=== PATIENT | male | born 1935 | race Caucasian/White ===

== ENCOUNTER 2018-12-16 11:57 | Inpatient (IN) ==
[2018-12-16 18:31] LABS: BASOPHILS # (AUTO) 0.1 X10^3/uL (0.0-0.1); BASOPHILS % (AUTO) 1.2 % (0.2-1.0); EOSINOPHILS # (AUTO) 0.2 x10^3/uL (0.0-0.2); HEMATOCRIT 37.1 % (42.0-54.0); HEMOGLOBIN 11.9 g/dL (13.5-18.0); LYMPHOCYTES # (AUTO) 1.5 X10^3/uL (1.3-2.9); LYMPHOCYTES % (AUTO) 15.1 % (21.0-51.0); MEAN CORPUSCULAR HEMOGLOBIN 23.5 pg (27.0-34.0); MEAN CORPUSCULAR HGB CONC 32.1 g/dL (33.0-35.0); MEAN CORPUSCULAR VOLUME 73.2 fL (80.0-100.0); MEAN PLATELET VOLUME 9.9 fL (7.4-11.0); MONOCYTES # (AUTO) 0.8 x10^3/uL (0.3-0.8); NEUTROPHILS # (AUTO) 7.5 x10^3/uL (2.2-4.8); NEUTROPHILS % (AUTO) 73.7 % (42.0-75.0); PLATELET COUNT 200 X10^3/uL (150.0-450.0); RED BLOOD COUNT 5.08 X10^6/uL (4.7-6.0); RED CELL DISTRIBUTION WIDTH 18.4 % (11.6-16.5); WHITE BLOOD COUNT 10.2 X10^3/uL (3.6-10.0)
[2018-12-16 18:45] LABS: ALANINE AMINOTRANSFERASE 19 Units/L (12-78); ALBUMIN 3.7 g/dL (3.4-5.0); ALKALINE PHOSPHATASE 77 Units/L (46-116); ASPARTATE AMINO TRANSFERASE 15 Units/L (15-37); BLOOD UREA NITROGEN 53 mg/dL (7-18); CARBON DIOXIDE 23.8 mmol/L (21-32); CHLORIDE 101 mmol/L (98-107); COR NA(FOR HYPERGLY) 140 mmol/L (136-145); CREATININE 2.78 mg/dL (0.70-1.30); SODIUM 138 mmol/L (136-145); TOTAL PROTEIN 8.6 g/dL (6.4-8.2); eGFR NON BLACK RACES 23 (>60)
[2018-12-16 18:48] LABS: HYPOCHROMASIA 1+; MICROCYTOSIS SLIGHT; PLATELET MORPHOLOGY COMMENT NORMAL (NORMAL)
[2018-12-16 20:26] VITALS: BMI 26.3
--- NOTE | 2018-12-16 21:04 | RAD ---
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 No infiltrate, effusion or pneumothorax identified. Cardiac silhouette is mildly enlarged. The soft tissues are unremarkable. IMPRESSION: 1. Mild cardiomegaly with postsurgical changes as described. Reported By:
[2018-12-16] MEDS: HumuLIN R SUBCUT PRN (23:01)
[2018-12-16] MEDS: LASIX IVP SCH (23:03)
[2018-12-17 04:47] LABS: BASOPHILS # (AUTO) 0.1 X10^3/uL (0.0-0.1); BASOPHILS % (AUTO) 0.9 % (0.2-1.0); EOSINOPHILS # (AUTO) 0.3 x10^3/uL (0.0-0.2); EOSINOPHILS % (AUTO) 3.3 % (0.9-2.9); HEMATOCRIT 34.2 % (42.0-54.0); HEMOGLOBIN 11.1 g/dL (13.5-18.0); LYMPHOCYTES # (AUTO) 1.5 X10^3/uL (1.3-2.9); LYMPHOCYTES % (AUTO) 18.9 % (21.0-51.0); MEAN CORPUSCULAR HEMOGLOBIN 23.8 pg (27.0-34.0); MEAN CORPUSCULAR HGB CONC 32.4 g/dL (33.0-35.0); MEAN CORPUSCULAR VOLUME 73.6 fL (80.0-100.0); MEAN PLATELET VOLUME 10.9 fL (7.4-11.0); MONOCYTES # (AUTO) 0.8 x10^3/uL (0.3-0.8); MONOCYTES % (AUTO) 9.8 % (0.0-13.0); NEUTROPHILS # (AUTO) 5.3 x10^3/uL (2.2-4.8); NEUTROPHILS % (AUTO) 67.1 % (42.0-75.0); PLATELET COUNT 154 X10^3/uL (150.0-450.0); RED BLOOD COUNT 4.64 X10^6/uL (4.7-6.0); RED CELL DISTRIBUTION WIDTH 18.4 % (11.6-16.5); WHITE BLOOD COUNT 7.9 X10^3/uL (3.6-10.0)
[2018-12-17 05:00] LABS: ALBUMIN 3.1 g/dL (3.4-5.0); CALCIUM 8.7 mg/dL (8.5-10.1); CARBON DIOXIDE 24.3 mmol/L (21-32); COR CA(FOR HYPOALB) 9.4 mg/dL (8.5-10.1); CREATININE 2.93 mg/dL (0.70-1.30); TOTAL PROTEIN 7.2 g/dL (6.4-8.2)
[2018-12-17 05:20] LABS: HYPOCHROMASIA 1+; PLATELET MORPHOLOGY COMMENT NORMAL (NORMAL)
--- NOTE | 2018-12-17 06:15 | RAD ---
HISTORY: Shortness of breath Study: Chest AP portable Comparison: 12/16/2018 Findings: Patient is status post median sternotomy. The heart is upper limits normal in size. The aorta is calcified. No congestive heart failure is noted. The carter are normal. The lung caban are clear. Bony thorax is unremarkable. IMPRESSION: Lungs clear Reported By:
[2018-12-17] MEDS: LASIX IVP SCH ×2 (09:24→21:27)
[2018-12-17] MEDS: GLUCOTROL PO SCH (10:52)
[2018-12-17] MEDS: ASPIRIN EC 81 MG PO SCH (10:53)
[2018-12-17] MEDS: COREG TAB 3.125 MG PO SCH ×2 (10:53→21:27)
[2018-12-17] MEDS: SYNTHROID 25 mcg TAB PO SCH (10:53)
[2018-12-17] MEDS ORDERED: PHARMACY CONSULT - DOSE _____ XX SCH (11:00)
[2018-12-17] MEDS: HumuLIN R SUBCUT PRN ×2 (12:57→21:28)
[2018-12-17] MEDS ORDERED: LOVENOX INJ 40 MG SYR SC SCH (13:00)
[2018-12-17] MEDS: LOVENOX INJ 30 MG SYR SC SCH (13:20)
[2018-12-17] MEDS ORDERED: SNACK - Diabetic Appropriate PO SCH ×2 (20:00)
[2018-12-17] MEDS ORDERED: ELAVIL PO SCH (21:00)
[2018-12-18 06:14] LABS: BASOPHILS # (AUTO) 0.1 X10^3/uL (0.0-0.1); BASOPHILS % (AUTO) 0.8 % (0.2-1.0); EOSINOPHILS # (AUTO) 0.2 x10^3/uL (0.0-0.2); EOSINOPHILS % (AUTO) 2.7 % (0.9-2.9); HEMOGLOBIN 12.2 g/dL (13.5-18.0); LYMPHOCYTES # (AUTO) 1.2 X10^3/uL (1.3-2.9); MEAN CORPUSCULAR HEMOGLOBIN 23.7 pg (27.0-34.0); MEAN CORPUSCULAR HGB CONC 32.9 g/dL (33.0-35.0); MEAN CORPUSCULAR VOLUME 72.2 fL (80.0-100.0); MEAN PLATELET VOLUME 10.2 fL (7.4-11.0); MONOCYTES # (AUTO) 0.6 x10^3/uL (0.3-0.8); MONOCYTES % (AUTO) 8.2 % (0.0-13.0); NEUTROPHILS # (AUTO) 5.2 x10^3/uL (2.2-4.8); NEUTROPHILS % (AUTO) 71.3 % (42.0-75.0); PLATELET COUNT 165 X10^3/uL (150.0-450.0); RED BLOOD COUNT 5.13 X10^6/uL (4.7-6.0); RED CELL DISTRIBUTION WIDTH 18.1 % (11.6-16.5); WHITE BLOOD COUNT 7.3 X10^3/uL (3.6-10.0)
--- NOTE | 2018-12-18 06:23 | RAD ---
HISTORY: Shortness of breath Study: Chest AP portable Comparison: 12/17/2018 Findings: Patient is status post median sternotomy. The heart is upper limits normal in size. The aorta is calcified. No congestive heart failure is noted. No infiltrates are identified. The bony thorax is unremarkable. IMPRESSION: Lungs clear Reported By:
[2018-12-18] MEDS: HumuLIN R SUBCUT PRN ×2 (06:27→12:00)
[2018-12-18 06:35] LABS: ALBUMIN 3.2 g/dL (3.4-5.0); CALCIUM 8.9 mg/dL (8.5-10.1); CARBON DIOXIDE 23.6 mmol/L (21-32); COR CA(FOR HYPOALB) 9.5 mg/dL (8.5-10.1); CREATININE 2.39 mg/dL (0.70-1.30); TOTAL PROTEIN 7.7 g/dL (6.4-8.2)
[2018-12-18 06:58] LABS: HYPOCHROMASIA SLIGHT; PLATELET MORPHOLOGY COMMENT NORMAL (NORMAL)
[2018-12-18] MEDS: GLUCOTROL PO SCH (08:43)
[2018-12-18] MEDS: ASPIRIN EC 81 MG PO SCH (08:43)
[2018-12-18] MEDS: COREG TAB 3.125 MG PO SCH (08:43)
[2018-12-18] MEDS: SYNTHROID 25 mcg TAB PO SCH (08:43)
[2018-12-18] MEDS: LASIX IVP SCH ×2 (08:45→10:11)
[2018-12-18] MEDS: LOVENOX INJ 30 MG SYR SC SCH (08:45)
[2018-12-18 09:10] VITALS: BP 131/60
[2018-12-18] MEDS ORDERED: LASIX PO ONE (11:42)
[2018-12-18] MEDS ORDERED: LASIX ONE (11:48)
[2018-12-19] MEDS ORDERED: LASIX PO ONE (11:42)
== END 2018-12-18 12:15 | disposition home or self-care (01) | DRG 191 ==
LOC: EDBD 11:58 → OBS 11:58 → ICU 17:53
PROVIDERS: ADMIT Internal Medicine; ATTEND Internal Medicine
DX: I11.0 Hypertensive heart disease with heart failure; R06.02 Shortness of breath; M13.0 Polyarthritis, unspecified; J44.1 Chronic obstructive pulmonary disease with (acute) exacerbation; I50.9 Heart failure, unspecified; N18.4 Chronic kidney disease, stage 4 (severe); E11.65 Type 2 diabetes mellitus with hyperglycemia
CPT/HCPCS: 36415; 71010; 71045; 80053; 83880; 85025; 93306; 97161; A4216; A4222; J1650; J1815; J1940

== ENCOUNTER 2020-05-15 14:08 | Inpatient (IN) ==
[2020-05-15] MEDS ORDERED: REMDESIVIR 200 MG in NS 250 ML IV 250 ML IV SCH (15:56)
[2020-05-15] MEDS ORDERED: DUONEB 0.5 MG/3 MG (3 mL) NEB SCH (15:56)
[2020-05-15] MEDS ORDERED: TUSSIONEX PENNKINETIC SUSP PO PRN (15:56)
[2020-05-15] MEDS ORDERED: NS 1/2 1000 ML IV 1,000 ML IV ONE (16:08)
[2020-05-15] MEDS ORDERED: DUONEB 0.5 MG/3 MG (3 mL) NEB ONE (16:22)
[2020-05-15] MEDS: DUONEB 0.5 MG/3 MG (3 mL) NEB SCH ×2 (16:30→20:16)
[2020-05-15] MEDS: PULMICORT NEB TX 0.5 MG NEB SCH ×2 (16:30→20:16)
[2020-05-15 16:31] VITALS: BMI 25.7
[2020-05-15] MEDS: NS 1/2 1000 ML IV 1,000 ML IV SCH (16:47)
[2020-05-15] MEDS: VSL#3 PO SCH (16:47)
[2020-05-15] MEDS: ROBITUSSIN DM PO SCH ×3 (16:47→22:00)
--- NOTE | 2020-05-15 16:55 | RAD ---
HISTORYPNEUMONIASTUDYCHEST, 1 [id number]/19/2020FINDINGSThe trachea is midline. The cardiac silhouette is stable. Similar post sternotomy changes. Patchy bilateral airspace opacities. The bony thorax is unremarkable.IMPRESSIONPatchy bilateral airspace opacities consistent with history of COVID-19. Recommend follow-up to resolution.Electronically signed by: TOMAS CLANCY (May 15, 2020 16:53:50)
[2020-05-15] MEDS: PEPCID 20 MG IV PREMIX* 20 MG/50 ML BAG IV SCH ×2 (17:01→22:00)
[2020-05-15] MEDS: LEVAQUIN PREMIX IV 500 MG 500 MG/100 ML BAG IV SCH (17:01)
[2020-05-15] MEDS: PROTONIX INJ 40 MG VIAL IVP SCH ×2 (17:01→22:00)
[2020-05-15 18:16] LABS: BASOPHILS % (AUTO) 0.3 % (0.2-1.0); EOSINOPHILS % (AUTO) 0.1 % (0.9-2.9); HEMATOCRIT 37.5 % (42.0-54.0); HEMOGLOBIN 11.8 g/dL (13.5-18.0); LYMPHOCYTES # (AUTO) 0.7 X10^3/uL (1.3-2.9); LYMPHOCYTES % (AUTO) 12.4 % (21.0-51.0); MEAN CORPUSCULAR HEMOGLOBIN 23.8 pg (27.0-34.0); MEAN CORPUSCULAR HGB CONC 31.4 g/dL (33.0-35.0); MEAN CORPUSCULAR VOLUME 75.7 fL (80.0-100.0); MEAN PLATELET VOLUME 11.1 fL (7.4-11.0); MONOCYTES # (AUTO) 0.6 x10^3/uL (0.3-0.8); MONOCYTES % (AUTO) 10.3 % (0.0-13.0); NEUTROPHILS # (AUTO) 4.4 x10^3/uL (2.2-4.8); NEUTROPHILS % (AUTO) 76.9 % (42.0-75.0); PLATELET COUNT 119 X10^3/uL (150.0-450.0); RED BLOOD COUNT 4.95 X10^6/uL (4.7-6.0); RED CELL DISTRIBUTION WIDTH 17.8 % (11.6-16.5); WHITE BLOOD COUNT 5.7 X10^3/uL (3.6-10.0)
[2020-05-15 18:35] LABS: HYPOCHROMASIA 1+; PLATELET MORPHOLOGY COMMENT NORMAL (NORMAL)
[2020-05-15 18:53] LABS: ALBUMIN 2.8 g/dL (3.4-5.0); CALCIUM 9.2 mg/dL (8.5-10.1); COR CA(FOR HYPOALB) 10.2 mg/dL (8.5-10.1); CREATININE 2.96 mg/dL (0.70-1.30); TOTAL PROTEIN 7.6 g/dL (6.4-8.2); TROPONIN I 0.05 ng/mL (0-1.5)
[2020-05-15 18:58] LABS: CARBON DIOXIDE 20.5 mmol/L (21-32)
[2020-05-15 20:07] LABS: ABG BASE EXCESS -6.2 mmol/L (-2.0-2.0); ABG HCO3 17.1 mmol/L (22-26)
[2020-05-15 20:08] LABS: ABG ALLEN TEST POS
[2020-05-15] MEDS: LOVENOX INJ 30 MG SYR SC SCH (21:30)
[2020-05-15] MEDS: SOLU-Medrol 40 MG VIAL IVP SCH (22:00)
[2020-05-16 05:36] LABS: BASOPHILS % (AUTO) 0.1 % (0.2-1.0); EOSINOPHILS % (AUTO) 0.1 % (0.9-2.9); HEMATOCRIT 35.3 % (42.0-54.0); LYMPHOCYTES # (AUTO) 0.4 X10^3/uL (1.3-2.9); LYMPHOCYTES % (AUTO) 9.3 % (21.0-51.0); MEAN CORPUSCULAR HEMOGLOBIN 23.7 pg (27.0-34.0); MEAN CORPUSCULAR HGB CONC 31.2 g/dL (33.0-35.0); MEAN CORPUSCULAR VOLUME 75.9 fL (80.0-100.0); MEAN PLATELET VOLUME 10.6 fL (7.4-11.0); MONOCYTES # (AUTO) 0.2 x10^3/uL (0.3-0.8); MONOCYTES % (AUTO) 4.7 % (0.0-13.0); NEUTROPHILS # (AUTO) 3.7 x10^3/uL (2.2-4.8); NEUTROPHILS % (AUTO) 85.8 % (42.0-75.0); PLATELET COUNT 100 X10^3/uL (150.0-450.0); RED BLOOD COUNT 4.65 X10^6/uL (4.7-6.0); RED CELL DISTRIBUTION WIDTH 17.6 % (11.6-16.5); WHITE BLOOD COUNT 4.4 X10^3/uL (3.6-10.0)
[2020-05-16 05:41] LABS: ABG BASE EXCESS -9.9 mmol/L (-2.0-2.0); ABG HCO3 14.9 mmol/L (22-26)
[2020-05-16 05:42] LABS: ABG ALLEN TEST POS
[2020-05-16] MEDS: NS 1/2 1000 ML IV 1,000 ML IV SCH ×2 (05:53→09:01)
[2020-05-16] MEDS: SOLU-Medrol 40 MG VIAL IVP SCH ×3 (05:53→21:48)
[2020-05-16 06:01] LABS: ALBUMIN 2.3 g/dL (3.4-5.0); CALCIUM 8.6 mg/dL (8.5-10.1); CREATININE 2.81 mg/dL (0.70-1.30); TOTAL PROTEIN 6.8 g/dL (6.4-8.2)
[2020-05-16 06:06] LABS: CARBON DIOXIDE 17.8 mmol/L (21-32)
[2020-05-16] MEDS ORDERED: HumuLIN R ONE (06:19)
[2020-05-16] MEDS: HumuLIN R SC PRN ×4 (06:23→21:39)
[2020-05-16 06:44] LABS: ANISOCYTOSIS SLIGHT; HYPOCHROMASIA SLIGHT; PLATELET MORPHOLOGY COMMENT NORMAL (NORMAL)
--- NOTE | 2020-05-16 08:01 | RAD ---
[id number], SOBSTUDYCHEST, 1 [id number]/14/2020FINDINGSThe trachea is near to the midline. Patient is status post sternotomy. There is a stent in the aortic root. There is no evidence of effusions or pneumothorax. There is stable mild cardiomegaly. There is uncoiling of the aorta are arch with calcifications. Since prior study there has been interval worsening of disease with more coalescent infiltrates in the left midlung zone as well as in the right upper lobe and in the right lower lobe.IMPRESSIONWorsening disease with new denser infiltrates in the left midlung zone right upper lobe and right lower lobe. No effusions or pneumothoraxElectronically signed by: Manuela Camarillo (May 16, 2020 07:59:27)
[2020-05-16] MEDS ORDERED: ATIVAN TAB 1 MG PO PRN (08:30)
[2020-05-16] MEDS: PULMICORT NEB TX 0.5 MG NEB SCH ×2 (08:50→20:20)
[2020-05-16] MEDS: DUONEB 0.5 MG/3 MG (3 mL) NEB SCH ×4 (08:50→20:20)
[2020-05-16] MEDS ORDERED: NS 1/2 1000 ML IV 1,000 ML IV ONE (08:56)
[2020-05-16 09:00] LABS: HEMOGLOBIN A1C 8.3 %
[2020-05-16] MEDS ORDERED: LASIX IVP SCH (09:00)
[2020-05-16] MEDS ORDERED: RED YEAST RICE 600 MG PO SCH (09:00)
[2020-05-16] MEDS: PEPCID 20 MG IV PREMIX* 20 MG/50 ML BAG IV SCH (09:02)
[2020-05-16] MEDS: VSL#3 PO SCH (09:02)
[2020-05-16] MEDS: LEVAQUIN PREMIX IV 500 MG 500 MG/100 ML BAG IV SCH (09:02)
[2020-05-16] MEDS: ROBITUSSIN DM PO SCH ×4 (09:02→21:48)
[2020-05-16 09:05] LABS: SERUM ACETONE NEGATIVE (NEGATIVE)
[2020-05-16] MEDS: REMDESIVIR 100 MG in NS 250 ML IV 250 ML IV SCH (09:18)
[2020-05-16] MEDS: LOVENOX INJ 30 MG SYR SC SCH ×2 (09:19→21:45)
--- NOTE | 2020-05-16 10:14 | DR.UPDATE ---
H&P Update History and Physical Update: History and Physical reviewed and patient examined. Changes noted: Yes with the following: IS A 84 YEAR OLD PATIENT OF OURS. HE PRESENTED TO THE OFFICE YESTERDAY WITH COMPLAINTS OF FEVER, CHILLS, COUGH, SHORTNESS OF BREATH, WEAKNESS, AND ACHING ALL OVER. SYMPTOMS REPORTEDLY STARTED ON 05/12/20. AUSCULTATION OF LUNG SERRATO REVEALED SCATTERED WHEEZING TO BILATERAL LUNGS. HE WAS TESTED FOR COVID-19. HE WAS POSITIVE. WHILE IN THE OFFICE, HIS OXYGEN SATURATIONS WERE NOTED TO BE 90% ON ROOM AIR. HE WAS ADMITTED TO THE HOSPITAL FOR FURTHER EVALUATION AND TREATMENT OF PNEUMONIA DUE TO COVID-19 AND HYPOXIA. ON ARRIVAL TO THE HOSPITAL, VITALS WERE 100.2-96-18-98%NC-161/71. LABS WERE OBTAINED. ABNORMAL LAB VALUES INCLUDE THE FOLLOWING: HGB 11.8, HCT 37.5, PLT COUNT 119, D-DIMER 2.15, CARBON DIOXIDE 20.5, BUN 53, CREATININE 2.96, GLUCOSE 170, AST 46, BNP 795, CRP 151.80, ALBUMIN 2.8, GLOBULIN 4.8. AN ABG WAS OBTAINED AND REVEALED: PH 7.410, PC02 27.0, P02 73, HC03 17.1, 02 SAT 95, BASE EXCESS -6.2, FI02 28.0. BLOOD CULTURES WERE SET UP. A CHEST XRAY WAS OBTAINED AND REVEALED: Patchy bilateral airspace opacities consistent with history of COVID-19. Recommend follow-up to resolution. AN EKG WAS OBTAINED AND REVEALED: SINUS RHYTHM WITH HR 99. 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 HE WAS STARTED ON 1/2NS AT 75 ML/HR, REMDESIVIR 200MG IV X 1 DOSE, THEN 100MG IV DAILY, LEVAQUIN 500MG IV DAILY, LASIX 40MG IV BID, PEPCID 20MG IV DAILY, PROTONIX 40MG IV BID, DUONEBS QID, PULMICORT NEBS BID, TUSSIONEX 5ML PO Q12H PRN, ROBITUSSIN DM 10 ML PO QID, HUMULIN R SLIDING SCALE, SOLU-MEDROL 80MG IV Q8H, LOVENOX 30MG SC BID, AND HER HOME MEDICATIONS WERE RESUMED. OTHERWISE, WE PLAN TO FOLLOW UP WITH AM LABS, CHEST XRAY, ABG, AND CONTINUE TO MONITOR. TIME SPENT ON CLINICAL ASSESSMENT, REVIEWING LABS AND IMAGING, DECISION MAKING, AND DOCUMENTATION GREATER THAN 74 MINUTES. Prescription drug monitoring program results: PDMP reviewed and no concerns identified H&P Reviewed: Yes Patient was examined?: Yes
[2020-05-16] MEDS: VITAMIN D3 25 mcg (1,000 UNITS) PO SCH ×2 (10:49→12:02)
[2020-05-16] MEDS: ASPIRIN EC 81 MG PO SCH (10:49)
[2020-05-16] MEDS: VITAMIN C PO SCH (10:49)
[2020-05-16] MEDS: COREG TAB 12.5 MG PO SCH ×2 (10:50→21:40)
[2020-05-16] MEDS: COLACE CAP 100 MG PO SCH (10:50)
[2020-05-16] MEDS: NEPHRO-VITE RX PO SCH (10:50)
[2020-05-16] MEDS: SYNTHROID 25 mcg TAB PO SCH (10:51)
[2020-05-16] MEDS: PROTONIX INJ 40 MG VIAL IVP SCH ×2 (10:56→21:47)
[2020-05-16] MEDS: FOLIC ACID TAB 1 MG PO SCH (10:56)
[2020-05-16] MEDS: NS 1/2 1000 ML IV 1,000 ML with SODIUM BICARBONATE 8.4% INJ ADULT 50 ML IV SCH ×2 (11:22)
[2020-05-16] MEDS: CRESTOR TAB 10 MG PO SCH (21:45)
[2020-05-16] MEDS: ELAVIL PO SCH (21:45)
[2020-05-16] MEDS: ATIVAN TAB 0.5 MG PO PRN (21:48)
[2020-05-17] MEDS: NS 1/2 1000 ML IV 1,000 ML with SODIUM BICARBONATE 8.4% INJ ADULT 50 ML IV SCH ×4 (00:04→16:38)
[2020-05-17 04:34] LABS: ABG ALLEN TEST POS; ABG BASE EXCESS -7.8 mmol/L (-2.0-2.0); ABG HCO3 16.6 mmol/L (22-26)
[2020-05-17 06:09] LABS: BASOPHILS % (AUTO) 0.1 % (0.2-1.0); HEMATOCRIT 35.9 % (42.0-54.0); HEMOGLOBIN 11.5 g/dL (13.5-18.0); LYMPHOCYTES # (AUTO) 0.8 X10^3/uL (1.3-2.9); LYMPHOCYTES % (AUTO) 6.7 % (21.0-51.0); MEAN CORPUSCULAR HEMOGLOBIN 23.6 pg (27.0-34.0); MEAN CORPUSCULAR VOLUME 73.9 fL (80.0-100.0); MEAN PLATELET VOLUME 11.6 fL (7.4-11.0); MONOCYTES # (AUTO) 0.7 x10^3/uL (0.3-0.8); MONOCYTES % (AUTO) 5.7 % (0.0-13.0); NEUTROPHILS # (AUTO) 10.7 x10^3/uL (2.2-4.8); NEUTROPHILS % (AUTO) 87.5 % (42.0-75.0); PLATELET COUNT 134 X10^3/uL (150.0-450.0); RED BLOOD COUNT 4.85 X10^6/uL (4.7-6.0); RED CELL DISTRIBUTION WIDTH 17.6 % (11.6-16.5); WHITE BLOOD COUNT 12.2 X10^3/uL (3.6-10.0)
[2020-05-17] MEDS: SOLU-Medrol 40 MG VIAL IVP SCH ×3 (06:28→22:38)
[2020-05-17 06:38] LABS: ALBUMIN 2.2 g/dL (3.4-5.0); CALCIUM 8.5 mg/dL (8.5-10.1); COR CA(FOR HYPOALB) 9.9 mg/dL (8.5-10.1); CREATININE 3.25 mg/dL (0.70-1.30); TOTAL PROTEIN 6.5 g/dL (6.4-8.2)
[2020-05-17 06:43] LABS: CARBON DIOXIDE 17.5 mmol/L (21-32)
--- NOTE | 2020-05-17 06:44 | RAD ---
HISTORYSOB, COVID+STUDYCHEST, 1 [id number]/15/2020TECHNIQUEAP view of the chestFINDINGSPost median sternotomy and cardiac valve replacement. Cardiac and mediastinal contour similar to prior. Stable bilateral airspace disease. No pleural effusion or pneumothorax.IMPRESSIONNo significant change.Electronically signed by: Nate Osorio (May 17, 2020 06:43:09)
[2020-05-17 06:54] LABS: HYPOCHROMASIA SLIGHT; PLATELET MORPHOLOGY COMMENT NORMAL (NORMAL)
[2020-05-17] MEDS: DUONEB 0.5 MG/3 MG (3 mL) NEB SCH ×4 (09:20→21:40)
[2020-05-17] MEDS: PULMICORT NEB TX 0.5 MG NEB SCH ×2 (09:20→21:40)
[2020-05-17] MEDS: LEVAQUIN PREMIX IV 500 MG 500 MG/100 ML BAG IV SCH (10:29)
[2020-05-17] MEDS: VITAMIN D3 25 mcg (1,000 UNITS) PO SCH (10:29)
[2020-05-17] MEDS: NEPHRO-VITE RX PO SCH (10:29)
[2020-05-17] MEDS: PROTONIX INJ 40 MG VIAL IVP SCH ×2 (10:30→22:38)
[2020-05-17] MEDS: LOVENOX INJ 30 MG SYR SC SCH ×2 (10:30→22:37)
[2020-05-17] MEDS: ROBITUSSIN DM PO SCH ×4 (10:31→22:38)
[2020-05-17] MEDS: VSL#3 PO SCH (10:31)
[2020-05-17] MEDS: COLACE CAP 100 MG PO SCH (10:31)
[2020-05-17] MEDS: SYNTHROID 25 mcg TAB PO SCH (10:31)
[2020-05-17] MEDS: COREG TAB 12.5 MG PO SCH ×2 (10:31→22:36)
[2020-05-17] MEDS: FOLIC ACID TAB 1 MG PO SCH (10:32)
[2020-05-17] MEDS: VITAMIN C PO SCH (10:32)
[2020-05-17] MEDS: ASPIRIN EC 81 MG PO SCH (10:32)
[2020-05-17] MEDS: PEPCID 20 MG IV PREMIX* 20 MG/50 ML BAG IV SCH (10:32)
[2020-05-17] MEDS: HumuLIN R SC PRN ×3 (11:40→22:39)
[2020-05-17] MEDS: REMDESIVIR 100 MG in NS 250 ML IV 250 ML IV SCH (13:58)
[2020-05-17] MEDS ORDERED: MORPHINE SULFATE INJ 2 MG INJ ONE (16:30)
[2020-05-17] MEDS: MORPHINE SULFATE INJ 2 MG INJ IVP PRN (16:48)
[2020-05-17 17:38] LABS: ABG BASE EXCESS -9.6 mmol/L (-2.0-2.0)
[2020-05-17 17:39] LABS: ABG ALLEN TEST POS; ABG HCO3 15.7 mmol/L (22-26)
[2020-05-17] MEDS: CRESTOR TAB 10 MG PO SCH (22:36)
[2020-05-17] MEDS: ELAVIL PO SCH (22:37)
[2020-05-18] MEDS: NS 1/2 1000 ML IV 1,000 ML with SODIUM BICARBONATE 8.4% INJ ADULT 50 ML IV SCH ×8 (03:00→21:25)
[2020-05-18 05:27] LABS: BASOPHILS % (AUTO) 0 % (0.2-1.0); HEMATOCRIT 35.9 % (42.0-54.0); HEMOGLOBIN 11.4 g/dL (13.5-18.0); LYMPHOCYTES # (AUTO) 0.4 X10^3/uL (1.3-2.9); LYMPHOCYTES % (AUTO) 2.4 % (21.0-51.0); MEAN CORPUSCULAR HEMOGLOBIN 23.7 pg (27.0-34.0); MEAN CORPUSCULAR HGB CONC 31.8 g/dL (33.0-35.0); MEAN CORPUSCULAR VOLUME 74.6 fL (80.0-100.0); MEAN PLATELET VOLUME 11.3 fL (7.4-11.0); MONOCYTES # (AUTO) 0.8 x10^3/uL (0.3-0.8); MONOCYTES % (AUTO) 4.9 % (0.0-13.0); NEUTROPHILS # (AUTO) 16.2 x10^3/uL (2.2-4.8); NEUTROPHILS % (AUTO) 92.7 % (42.0-75.0); PLATELET COUNT 155 X10^3/uL (150.0-450.0); RED BLOOD COUNT 4.82 X10^6/uL (4.7-6.0); RED CELL DISTRIBUTION WIDTH 17.6 % (11.6-16.5); WHITE BLOOD COUNT 17.4 X10^3/uL (3.6-10.0)
[2020-05-18 05:33] LABS: ABG ALLEN TEST POS; ABG HCO3 18.8 mmol/L (22-26); FRACTIONATED INSPIRED OXYGEN 100
[2020-05-18 05:37] LABS: ALBUMIN 2.2 g/dL (3.4-5.0); CALCIUM 8.6 mg/dL (8.5-10.1); CARBON DIOXIDE 20.9 mmol/L (21-32); CREATININE 3.78 mg/dL (0.70-1.30); TOTAL PROTEIN 6.6 g/dL (6.4-8.2)
[2020-05-18] MEDS: SOLU-Medrol 40 MG VIAL IVP SCH ×3 (05:57→21:25)
[2020-05-18 06:24] LABS: HYPOCHROMASIA 1+; PLATELET MORPHOLOGY COMMENT NORMAL (NORMAL)
--- NOTE | 2020-05-18 08:06 | RAD ---
HISTORYCOVID, SOBSTUDYCHEST, 1 VIEWCOMPARISONPortable chest May 17, 2020.FINDINGSThe trachea is midline. The cardiac silhouette is unremarkable there are sternotomy wires from prior surgery. And aortic stent is in place.. The diffuse interstitial infiltrates are present bilaterally but show mild improvement in the density of the infiltrate in the left midlung field. There is no pneumothorax or effusion.. The bony thorax is unremarkable.IMPRESSIONBilateral interstitial infiltrates with mild improvement in the left midlung field compared to yesterdays study.Postsurgical changes sternotomy and aortic stent in place..Electronically signed by: BYRON MARIN (May 18, 2020 08:04:56)
[2020-05-18] MEDS: DUONEB 0.5 MG/3 MG (3 mL) NEB SCH ×4 (09:10→20:42)
[2020-05-18] MEDS: PULMICORT NEB TX 0.5 MG NEB SCH ×2 (09:10→20:42)
[2020-05-18] MEDS: NEPHRO-VITE RX PO SCH (09:26)
[2020-05-18] MEDS: PEPCID 20 MG IV PREMIX* 20 MG/50 ML BAG IV SCH (09:32)
[2020-05-18] MEDS: LOVENOX INJ 30 MG SYR SC SCH ×2 (09:33→21:25)
[2020-05-18] MEDS: PROTONIX INJ 40 MG VIAL IVP SCH ×2 (09:35→21:25)
[2020-05-18] MEDS: COREG TAB 12.5 MG PO SCH ×2 (09:48→21:25)
[2020-05-18] MEDS: SYNTHROID 25 mcg TAB PO SCH (09:49)
[2020-05-18] MEDS: ASPIRIN EC 81 MG PO SCH (09:49)
[2020-05-18] MEDS: ROBITUSSIN DM PO SCH ×4 (09:49→21:25)
[2020-05-18] MEDS: VITAMIN D3 25 mcg (1,000 UNITS) PO SCH (09:52)
[2020-05-18] MEDS: VITAMIN C PO SCH (09:53)
[2020-05-18] MEDS: FOLIC ACID TAB 1 MG PO SCH (09:53)
[2020-05-18] MEDS: VSL#3 PO SCH (09:54)
[2020-05-18] MEDS: COLACE CAP 100 MG PO SCH (09:54)
[2020-05-18] MEDS ORDERED: PHARMACY CONSULT - VANCOMYCIN XX SCH (10:00)
[2020-05-18] MEDS: LEVAQUIN PREMIX IV 500 MG 500 MG/100 ML BAG IV SCH (10:17)
[2020-05-18] MEDS: HumuLIN R SC PRN ×3 (10:49→21:25)
[2020-05-18] MEDS: REMDESIVIR 100 MG in NS 250 ML IV 250 ML IV SCH (11:42)
[2020-05-18] MEDS: VANCOMYCIN IV *PREMIX 1 G/200 ML BAG 1 G/200 ML PIGGYBACK IV NR (13:08)
[2020-05-18] MEDS ORDERED: LASIX IVP ONE (16:35)
--- NOTE | 2020-05-18 20:49 | PCM.PROG ---
Progress Note - Progress Note for Day of Date of Exam: 05/17/20 - Subjective Subjective: WAS ADMITTED FOR TREATMENT OF PNEUMONIA DUE TO COVID-19 AND HYPOXIA. TODAY, HE IS ALERT AND ORIENTED, LYING IN BED ON MORNING ROUNDS.HE CONTINUES WITH COMPLAINTS OF WEAKNESS, COUGH, SHORTNESS OF BREATH, AND BODY ACHES TODAY. HE IS CURRENTLY UTILZING HEATED HIGH FLOW OXYGEN AT 50%, FI02 94. HIS OXYGEN SATURATIONS HAVE BEEN 88-95% ON [facility] OXYGEN. WHEN AMBULATING, HIS SATURATIONS DROP TO THE 70s. HE DENIES IMPROVEMENT IN SYMPTOMS SINCE YESTERDAY. ON EXAMINATION, HEART IS REGULAR IN RATE AND RHYTHM. BILATERAL LUNGS ARE NOTED WITH SCATTERED WHEEZING THROUGHOUT. ABDOMEN IS ROUND, SOFT, AND NON-TENDER WITH NORMAL BOWEL SOUNDS NOTED IN ALL QUADRANTS. HIS VITALS THIS MORNING ARE: 98.4-8 9-44-90%HHF-159/70. LABS WERE OBTAINED. ABNORMAL LAB VALUES INCLUDE THE FOLLOWING: WBC 12.2, HGB 11.5, HCT 35.9, PLT COUNT 134, CARBON DIOXIDE 17.5, VUN 71, CREATININE 3.25, GLUCOSE 193, FERRITIN 2937, AST 52, CRP 102.90, ALBUMIN 2.2. AN ABG WAS OBTAINED THIS MORNING AND REVEALED: PH 7.300, PC02 32, P02 72, HC03 15.7, 02 SAT 92, FI02 100.0. SPUTUM AND BLOOD CULTURES ARE PENDING. A CHEST XRAY WAS OBTAINED AND REVEALED: Post median sternotomy and cardiac valve replacement. Cardiac and mediastinal contour similar to prior. Stable bilateral airspace disease. No pleural effusion or pneumothorax. HE IS CURRNENTLY RECEIVING 1/2NS AT 75 ML/HR, REMDESIVIR 200MG IV X 1 DOSE, THEN 100MG IV DAILY, LEVAQUIN 500MG IV DAILY, LASIX 40MG IV BID, PEPCID 20MG IV DAILY, PROTONIX 40MG IV BID, DUONEBS QID, PULMICORT NEBS BID, TUSSIONEX 5ML PO Q12H PRN, ROBITUSSIN DM 10 ML PO QID, HUMULIN R SLIDING SCALE, SOLU-MEDROL 80MG IV Q8H, LOVENOX 30MG SC BID, AND HER HOME MEDICATIONS WERE RESUMED. TIME SPENT ON CLINICAL ASSESSMENT, REVIEWING LABS AND IMAGING, DECISION MAKING, AND DOCUMENTATION GREATER THAN 45 MINUTES. - Past Medical Family Social History Past Med/Fam/Surg Hx: No changes since H&P Allergies: Allergies naproxen [From Aleve] Allergy (Verified 05/13/20 12:48) - Review of Systems ROS: No change since H&P - Vital Signs and I&O's Vital Signs: Temperature 97.7 F Pulse Rate [Apical] 93 Pulse Rate 77 Respiratory Rate 25 Blood Pressure [Left Arm] 151/65 Blood Pressure [Right Arm] 129/60 Blood Pressure 124/60 O2 Sat by Pulse Oximetry 93 Intake and Output: Intake & Output 05/16/20 05/17/20 05/18/20 05/19/20 11:59 11:59 11:59 11:59 Intake Total 1825 / 1825 2756 / 2756 2741 / 2741 1520 / 1520 Output Total 600 / 600 2125 / 2125 1500 / 1500 350 / 350 Balance 1225 / 1225 631 / 631 1241 / 1241 1170 / 1170 - Physical Exam Oriented: Normal Eyes: Normal Ear: Normal Nose: Normal Throat: Normal Respiratory: Generalized, Wheezes Cardiovascular: Normal : Normal Auscultation: Bowel Sounds: Normal Palpation: Normal Tenderness: Normal Skin: Normal Musculoskeletal: Normal Psychiatric: Normal Mood Description: Calm Affect: Normal Speech Pattern: Clear, Appropriate - Laboratory and Diagnostics Result Diagrams: 05/18/20 04:45 05/18/20 04:45 Labs: 05/15/20 17:30 Blood Blood Culture - Preliminary 05/15/20 17:45 Blood Blood Culture - Preliminary 05/16/20 13:38 Sputum - Expectorated Sputum Sputum Culture - Final 05/16/20 13:38 Sputum - Expectorated Sputum - Final Laboratory WBC 17.4 X10^3/uL (3.6-10.0) H 05/18/20 04:45 RBC 4.82 X10^6/uL (4.7-6.0) 05/18/20 04:45 Hgb 11.4 g/dL (13.5-18.0) L 05/18/20 04:45 Hct 35.9 % (42.0-54.0) L 05/18/20 04:45 MCV 74.6 fL (80.0-100.0) L 05/18/20 04:45 MCH 23.7 pg (27.0-34.0) L 05/18/20 04:45 MCHC 31.8 g/dL (33.0-35.0) L 05/18/20 04:45 RDW 17.6 % (11.6-16.5) H 05/18/20 04:45 Plt Count 155 X10^3/uL (150.0-450.0) 05/18/20 04:45 Plt Count Comment Adequate (ADEQUATE) 05/18/20 04:45 MPV 11.3 fL (7.4-11.0) H 05/18/20 04:45 Neut % (Auto) 92.7 % (42.0-75.0) H 05/18/20 04:45 Lymph % (Auto) 2.4 % (21.0-51.0) L 05/18/20 04:45 [place] % (Auto) 4.9 % (0.0-13.0) 05/18/20 04:45 Eos % (Auto) 0.0 % (0.9-2.9) L 05/18/20 04:45 Baso % (Auto) 0 % (0.2-1.0) L 05/18/20 04:45 Neut # (Auto) 16.2 x10^3/uL (2.2-4.8) H 05/18/20 04:45 Lymph # (Auto) 0.4 X10^3/uL (1.3-2.9) L 05/18/20 04:45 [place] # (Auto) 0.8 x10^3/uL (0.3-0.8) 05/18/20 04:45 Eos # (Auto) 0.0 x10^3/uL (0.0-0.2) 05/18/20 04:45 Baso # (Auto) 0.0 X10^3/uL (0.0-0.1) 05/18/20 04:45 Absolute Nucleated RBC 0.1 /100WBC 05/18/20 04:45 Total Counted 100 05/18/20 04:45 Neutrophils % (Manual) 92 % (39-76) H 05/18/20 04:45 Lymphocytes % (Manual) 6 % (13-43) L 05/18/20 04:45 Monocytes % (Manual) 2 % (4-9) L 05/18/20 04:45 Plt Morphology Comment Normal (NORMAL) 05/18/20 04:45 RBC Morphology Abnormal (NORMAL) 05/18/20 04:45 Hypochromasia 1+ A 05/18/20 04:45 Anisocytosis Slight A 05/16/20 04:50 D-Dimer 2.15 ug/ml (0.0-0.57) H* 05/15/20 17:30 Sample Site Rr 05/18/20 05:00 ABG pH 7.350 (7.35-7.45) 05/18/20 05:00 ABG pCO2 34.0 mmHg (35.0-45.0) L 05/18/20 05:00 ABG pO2 65.0 mmHg (80.0-100.0) L 05/18/20 05:00 ABG HCO3 18.8 mmol/L (22-26) L 05/18/20 05:00 ABG O2 Saturation 91.0 % (90-100) 05/18/20 05:00 ABG Base Excess -6.0 mmol/L (-2.0-2.0) L 05/18/20 05:00 Breezy Test Pos 05/18/20 05:00 A-a Gradient 606.0 mmHg 05/18/20 05:00 FiO2 100 05/18/20 05:00 Blood Gas Comments Andre well 05/18/20 05:00 Sodium 139 mmol/L (136-145) 05/18/20 04:45 Corrected Sodium 142 mmol/L (136-145) 05/18/20 04:45 Potassium 4.7 mmol/L (3.5-5.1) 05/18/20 04:45 Chloride 104 mmol/L (98-107) 05/18/20 04:45 Carbon Dioxide 20.9 mmol/L (21-32) L 05/18/20 04:45 BUN 89 mg/dL (7-18) H 05/18/20 04:45 Creatinine 3.78 mg/dL (0.70-1.30) H 05/18/20 04:45 Est GFR (MDRD) Af Amer 20 (>60) L 05/18/20 04:45 Est GFR (MDRD) Non-Af 16 (>60) L 05/18/20 04:45 Glucose 209 mg/dL (65-99) H 05/18/20 04:45 POC Glucose (mg/dL) 191 mg/dL (65-99) H 05/18/20 19:28 Hemoglobin A1c 8.3 % 05/16/20 04:50 Calcium 8.6 mg/dL (8.5-10.1) 05/18/20 04:45 Corrected Calcium 10.0 mg/dL (8.5-10.1) 05/18/20 04:45 Ferritin 3324 ng/mL (26-388) H 05/18/20 04:45 Total Bilirubin 0.30 mg/dL (0.2-1.0) 05/18/20 04:45 AST 58 Units/L (15-37) H 05/18/20 04:45 ALT 27 Units/L (12-78) 05/18/20 04:45 Alkaline Phosphatase 75 Units/L (46-116) 05/18/20 04:45 Creatine Kinase 98 Units/L (39-308) 05/15/20 17:30 CK-MB (CK-2) 1.0 ng/mL (0-4.0) 05/15/20 17:30 CK/CKMB % Calc 1.0 % (<4) 05/15/20 17:30 Troponin I 0.05 ng/mL (0-1.5) 05/15/20 17:30 C-Reactive Protein 80.90 mg/L (0-3.0) H 05/18/20 04:45 B-Natriuretic Peptide 795 pg/mL (0-79) H* 05/15/20 17:30 Total Protein 6.6 g/dL (6.4-8.2) 05/18/20 04:45 Albumin 2.2 g/dL (3.4-5.0) L 05/18/20 04:45 Globulin 4.4 g/dL (2.5-4.5) 05/18/20 04:45 Albumin/Globulin Ratio 0.5 Ratio (1.1-2.1) L 05/18/20 04:45 Acetone, Semi-Quant Negative (NEGATIVE) 05/16/20 04:50 Influenza Type A (PCR) Negative (NEGATIVE) 05/15/20 16:53 Influenza Type B (PCR) Negative (NEGATIVE) 05/15/20 16:53 SARS CoV-2 RNA Rapid DIGNA Positive (NEGATIVE) A 05/15/20 15:20 - Plan (1) Pneumonia due to 2019 novel coronavirus Status: Acute Plan: 1/2NS AT 75 ML/HR, REMDESIVIR 200MG IV X 1 DOSE, THEN 100MG IV DAILY, LEVAQUIN 500MG IV DAILY, LASIX 40MG IV BID, PEPCID 20MG IV DAILY, PROTONIX 40MG IV BID, DUONEBS QID, PULMICORT NEBS BID, TUSSIONEX 5ML PO Q12H PRN, ROBITUSSIN DM 10 ML PO QID, HUMULIN R SLIDING SCALE, SOLU-MEDROL 80MG IV Q8H, LOVENOX 30MG SC BID, AND HER HOME MEDICATIONS WERE RESUMED (2) Hypoxia Status: Acute
--- NOTE | 2020-05-18 21:14 | PCM.PROG ---
Progress Note - Progress Note for Day of Date of Exam: 05/18/20 - Subjective Subjective: WAS ADMITTED FOR TREATMENT OF PNEUMONIA DUE TO COVID-19 AND HYPOXIA. TODAY, HE IS ALERT AND ORIENTED, LYING IN BED ON MORNING ROUNDS.HE CONTINUES WITH COMPLAINTS OF WEAKNESS, COUGH, SHORTNESS OF BREATH, AND BODY ACHES TODAY. HE IS CURRENTLY UTILIZING THE BIPAP. HE WAS PLACED ON THE BIPAP YESTERDAY DUE TO OXYGEN SATURATIONS DROPPING TO THE 70s MULTIPLE TIMES. HIS OXYGEN SATURATIONS HAVE BEEN 100% ON THE BIPAP. HE DENIES IMPROVEMENT IN SYMPTOMS SINCE YESTERDAY. ON EXAMINATION, HEART IS REGULAR IN RATE AND RHYTHM. BILATERAL LUNGS ARE NOTED WITH SCATTERED WHEEZING THROUGHOUT. ABDOMEN IS ROUND, SOFT, AND NON-TENDER WITH NORMAL BOWEL SOUNDS NOTED IN ALL QUADRANTS. HIS VITALS THIS MORNING ARE: 97.5-80-22-97%BIPAP-138/60. LABS WERE OBTAINED. ABNORMAL LAB VALUES INCLUDE THE FOLLOWING: WBC 17.4, HGB 11.4, HCT 35.9, CARBON DIOXIDE 17.5, BUN 71, CREATININE 3.25, GLUCOSE 193, FERRITIN 2937, AST 52, CRP 102.90, ALBUMIN 2.2. AN ABG WAS OBTAINED THIS MORNING AND REVEALED: PH 7.350, PC02 34, P02 65, HC03 18.8, 02 SAT 91, FI02 100. SPUTUM AND BLOOD CULTURES ARE PENDING. SPUTUM CULTURE REPORTS CLUSTERS OF GRAM POSITIVE COCCI. A CHEST XRAY WAS OBTAINED AND REVEALED: Bilateral interstitial infiltrates with mild improvement in the left midlung field compared to yesterdays study. Postsurgical changes sternotomy and aortic stent in place. HE IS CURRENTLY RECEIVING 1/2NS WITH 1 AMP BICARB IN EACH LITER AT 75 ML/HR, REMDESIVIR 200MG IV X 1 DOSE, THEN 100MG IV DAILY, LEVAQUIN 500MG IV DAILY, LASIX 40MG IV BID, PEPCID 20MG IV DAILY, PROTONIX 40MG IV BID, DUONEBS QID, PULMICORT NEBS BID, TUSSIONEX 5ML PO Q12H PRN, ROBITUSSIN DM 10 ML PO QID, HUMULIN R SLIDING SCALE, SOLU-MEDROL 80MG IV Q8H, LOVENOX 30MG SC BID, AND HIS HOME MEDICATIONS WERE RESUMED. TODAY, WE WILL INCREASE HIS IV FLUIDS TO 125 ML/HR AND ADD VANCOMYCIN IV, PHARMACY TO DOSE. TIME SPENT ON CLINICAL ASSESSMENT, REVIEWING LABS AND IMAGING, DECISION MAKING, AND DOCUMENTATION GREATER THAN 45 MINUTES. - Past Medical Family Social History Past Med/Fam/Surg Hx: No changes since H&P Allergies: Allergies naproxen [From Aleve] Allergy (Verified 05/13/20 12:48) - Review of Systems ROS: No change since H&P - Vital Signs and I&O's Vital Signs: Temperature 97.7 F Pulse Rate [Apical] 93 Pulse Rate 77 Respiratory Rate 25 Blood Pressure [Left Arm] 151/65 Blood Pressure [Right Arm] 129/60 Blood Pressure 124/60 O2 Sat by Pulse Oximetry 93 Intake and Output: Intake & Output 05/16/20 05/17/20 05/18/20 05/19/20 11:59 11:59 11:59 11:59 Intake Total 1825 / 1825 2756 / 2756 2741 / 2741 1520 / 1520 Output Total 600 / 600 2125 / 2125 1500 / 1500 350 / 350 Balance 1225 / 1225 631 / 631 1241 / 1241 1170 / 1170 - Physical Exam Oriented: Normal Eyes: Normal Ear: Normal Nose: Normal Throat: Normal Respiratory: Generalized, Wheezes Cardiovascular: Normal : Normal Auscultation: Bowel Sounds: Normal Palpation: Normal Tenderness: Normal Skin: Normal Musculoskeletal: Normal Psychiatric: Normal Mood Description: Calm Affect: Normal Speech Pattern: Clear, Appropriate - Laboratory and Diagnostics Result Diagrams: 05/18/20 04:45 05/18/20 04:45 Labs: 05/15/20 17:30 Blood Blood Culture - Preliminary 05/15/20 17:45 Blood Blood Culture - Preliminary 05/16/20 13:38 Sputum - Expectorated Sputum Sputum Culture - Final 05/16/20 13:38 Sputum - Expectorated Sputum - Final Laboratory WBC 17.4 X10^3/uL (3.6-10.0) H 05/18/20 04:45 RBC 4.82 X10^6/uL (4.7-6.0) 05/18/20 04:45 Hgb 11.4 g/dL (13.5-18.0) L 05/18/20 04:45 Hct 35.9 % (42.0-54.0) L 05/18/20 04:45 MCV 74.6 fL (80.0-100.0) L 05/18/20 04:45 MCH 23.7 pg (27.0-34.0) L 05/18/20 04:45 MCHC 31.8 g/dL (33.0-35.0) L 05/18/20 04:45 RDW 17.6 % (11.6-16.5) H 05/18/20 04:45 Plt Count 155 X10^3/uL (150.0-450.0) 05/18/20 04:45 Plt Count Comment Adequate (ADEQUATE) 05/18/20 04:45 MPV 11.3 fL (7.4-11.0) H 05/18/20 04:45 Neut % (Auto) 92.7 % (42.0-75.0) H 05/18/20 04:45 Lymph % (Auto) 2.4 % (21.0-51.0) L 05/18/20 04:45 [place] % (Auto) 4.9 % (0.0-13.0) 05/18/20 04:45 Eos % (Auto) 0.0 % (0.9-2.9) L 05/18/20 04:45 Baso % (Auto) 0 % (0.2-1.0) L 05/18/20 04:45 Neut # (Auto) 16.2 x10^3/uL (2.2-4.8) H 05/18/20 04:45 Lymph # (Auto) 0.4 X10^3/uL (1.3-2.9) L 05/18/20 04:45 [place] # (Auto) 0.8 x10^3/uL (0.3-0.8) 05/18/20 04:45 Eos # (Auto) 0.0 x10^3/uL (0.0-0.2) 05/18/20 04:45 Baso # (Auto) 0.0 X10^3/uL (0.0-0.1) 05/18/20 04:45 Absolute Nucleated RBC 0.1 /100WBC 05/18/20 04:45 Total Counted 100 05/18/20 04:45 Neutrophils % (Manual) 92 % (39-76) H 05/18/20 04:45 Lymphocytes % (Manual) 6 % (13-43) L 05/18/20 04:45 Monocytes % (Manual) 2 % (4-9) L 05/18/20 04:45 Plt Morphology Comment Normal (NORMAL) 05/18/20 04:45 RBC Morphology Abnormal (NORMAL) 05/18/20 04:45 Hypochromasia 1+ A 05/18/20 04:45 Anisocytosis Slight A 05/16/20 04:50 D-Dimer 2.15 ug/ml (0.0-0.57) H* 05/15/20 17:30 Sample Site Rr 05/18/20 05:00 ABG pH 7.350 (7.35-7.45) 05/18/20 05:00 ABG pCO2 34.0 mmHg (35.0-45.0) L 05/18/20 05:00 ABG pO2 65.0 mmHg (80.0-100.0) L 05/18/20 05:00 ABG HCO3 18.8 mmol/L (22-26) L 05/18/20 05:00 ABG O2 Saturation 91.0 % (90-100) 05/18/20 05:00 ABG Base Excess -6.0 mmol/L (-2.0-2.0) L 05/18/20 05:00 Breezy Test Pos 05/18/20 05:00 A-a Gradient 606.0 mmHg 05/18/20 05:00 FiO2 100 05/18/20 05:00 Blood Gas Comments Andre well sw 05/18/20 05:00 Sodium 139 mmol/L (136-145) 05/18/20 04:45 Corrected Sodium 142 mmol/L (136-145) 05/18/20 04:45 Potassium 4.7 mmol/L (3.5-5.1) 05/18/20 04:45 Chloride 104 mmol/L (98-107) 05/18/20 04:45 Carbon Dioxide 20.9 mmol/L (21-32) L 05/18/20 04:45 BUN 89 mg/dL (7-18) H 05/18/20 04:45 Creatinine 3.78 mg/dL (0.70-1.30) H 05/18/20 04:45 Est GFR (MDRD) Af Amer 20 (>60) L 05/18/20 04:45 Est GFR (MDRD) Non-Af 16 (>60) L 05/18/20 04:45 Glucose 209 mg/dL (65-99) H 05/18/20 04:45 POC Glucose (mg/dL) 191 mg/dL (65-99) H 05/18/20 19:28 Hemoglobin A1c 8.3 % 05/16/20 04:50 Calcium 8.6 mg/dL (8.5-10.1) 05/18/20 04:45 Corrected Calcium 10.0 mg/dL (8.5-10.1) 05/18/20 04:45 Ferritin 3324 ng/mL (26-388) H 05/18/20 04:45 Total Bilirubin 0.30 mg/dL (0.2-1.0) 05/18/20 04:45 AST 58 Units/L (15-37) H 05/18/20 04:45 ALT 27 Units/L (12-78) 05/18/20 04:45 Alkaline Phosphatase 75 Units/L (46-116) 05/18/20 04:45 Creatine Kinase 98 Units/L (39-308) 05/15/20 17:30 CK-MB (CK-2) 1.0 ng/mL (0-4.0) 05/15/20 17:30 CK/CKMB % Calc 1.0 % (<4) 05/15/20 17:30 Troponin I 0.05 ng/mL (0-1.5) 05/15/20 17:30 C-Reactive Protein 80.90 mg/L (0-3.0) H 05/18/20 04:45 B-Natriuretic Peptide 795 pg/mL (0-79) H* 05/15/20 17:30 Total Protein 6.6 g/dL (6.4-8.2) 05/18/20 04:45 Albumin 2.2 g/dL (3.4-5.0) L 05/18/20 04:45 Globulin 4.4 g/dL (2.5-4.5) 05/18/20 04:45 Albumin/Globulin Ratio 0.5 Ratio (1.1-2.1) L 05/18/20 04:45 Acetone, Semi-Quant Negative (NEGATIVE) 05/16/20 04:50 Influenza Type A (PCR) Negative (NEGATIVE) 05/15/20 16:53 Influenza Type B (PCR) Negative (NEGATIVE) 05/15/20 16:53 SARS CoV-2 RNA Rapid DIGNA Positive (NEGATIVE) A 05/15/20 15:20 - Plan (1) Pneumonia due to 2019 novel coronavirus Status: Acute Plan: 1/2NS WITH 1 AMP BICARB IN EACH LITER AT 125 ML/HR, REMDESIVIR 100MG IV DAILY, LEVAQUIN 500MG IV DAILY, VANCOMYCIN IV, LASIX 40MG IV BID, PEPCID 20MG IV DAILY, PROTONIX 40MG IV BID, DUONEBS QID, PULMICORT NEBS BID, TUSSIONEX 5ML PO Q12H PRN, ROBITUSSIN DM 10 ML PO QID, HUMULIN R SLIDING SCALE, SOLU-MEDROL 80MG IV Q8H, LOVENOX 30MG SC BID, AND HER HOME MEDICATIONS WERE RESUMED (2) Hypoxia Status: Acute
[2020-05-18] MEDS: CRESTOR TAB 10 MG PO SCH (21:25)
[2020-05-18] MEDS: ELAVIL PO SCH (21:25)
[2020-05-19 04:46] LABS: ABG ALLEN TEST POS; ABG BASE EXCESS -5.3 mmol/L (-2.0-2.0); ABG HCO3 18.9 mmol/L (22-26)
[2020-05-19 05:40] LABS: TOTAL PROTEIN 5.7 g/dL (6.4-8.2)
[2020-05-19] MEDS: SOLU-Medrol 40 MG VIAL IVP SCH ×3 (05:49→21:36)
[2020-05-19] MEDS: HumuLIN R SC PRN ×2 (05:50→11:37)
[2020-05-19] MEDS: NS 1/2 1000 ML IV 1,000 ML with SODIUM BICARBONATE 8.4% INJ ADULT 50 ML IV SCH ×8 (05:50→21:36)
[2020-05-19 06:06] LABS: BASOPHILS % (AUTO) 0.1 % (0.2-1.0); HEMATOCRIT 30.9 % (42.0-54.0); LYMPHOCYTES # (AUTO) 0.2 X10^3/uL (1.3-2.9); LYMPHOCYTES % (AUTO) 1.4 % (21.0-51.0); MEAN CORPUSCULAR HEMOGLOBIN 23.6 pg (27.0-34.0); MEAN CORPUSCULAR HGB CONC 32.2 g/dL (33.0-35.0); MEAN CORPUSCULAR VOLUME 73.3 fL (80.0-100.0); MEAN PLATELET VOLUME 11.7 fL (7.4-11.0); MONOCYTES % (AUTO) 5.9 % (0.0-13.0); NEUTROPHILS # (AUTO) 15.7 x10^3/uL (2.2-4.8); NEUTROPHILS % (AUTO) 92.6 % (42.0-75.0); PLATELET COUNT 140 X10^3/uL (150.0-450.0); RED BLOOD COUNT 4.22 X10^6/uL (4.7-6.0); RED CELL DISTRIBUTION WIDTH 17.6 % (11.6-16.5)
[2020-05-19 06:31] LABS: CALCIUM 7.9 mg/dL (8.5-10.1); CARBON DIOXIDE 17.8 mmol/L (21-32); COR CA(FOR HYPOALB) 9.5 mg/dL (8.5-10.1); CREATININE 4.19 mg/dL (0.70-1.30)
--- NOTE | 2020-05-19 06:39 | RAD ---
HISTORYCOVID, SOBSTUDYCHEST, 1 [id number]/2020.TECHNIQUEAP view of the chestFINDINGSPost median sternotomy and cardiac valve replacement. Cardiac silhouette is stably enlarged. Stable bilateral airspace and interstitial opacities. Small pleural effusions are suspect. No pneumothorax.IMPRESSIONNo significant change.Electronically signed by: Nate Osorio (May 19, 2020 06:37:35)
[2020-05-19 07:04] LABS: HYPOCHROMASIA 1+; PLATELET MORPHOLOGY COMMENT NORMAL (NORMAL)
[2020-05-19] MEDS: VITAMIN D3 25 mcg (1,000 UNITS) PO SCH (08:28)
[2020-05-19] MEDS: PROTONIX INJ 40 MG VIAL IVP SCH ×2 (08:30→21:34)
[2020-05-19] MEDS: ASPIRIN EC 81 MG PO SCH (08:30)
[2020-05-19] MEDS: NEPHRO-VITE RX PO SCH (08:30)
[2020-05-19] MEDS: COREG TAB 12.5 MG PO SCH ×2 (08:30→21:31)
[2020-05-19] MEDS: COLACE CAP 100 MG PO SCH (08:31)
[2020-05-19] MEDS: ROBITUSSIN DM PO SCH ×4 (08:31→21:34)
[2020-05-19] MEDS: LOVENOX INJ 30 MG SYR SC SCH ×2 (08:32→21:32)
[2020-05-19] MEDS: FOLIC ACID TAB 1 MG PO SCH (08:32)
[2020-05-19] MEDS: PEPCID 20 MG IV PREMIX* 20 MG/50 ML BAG IV SCH (08:32)
[2020-05-19] MEDS: SYNTHROID 25 mcg TAB PO SCH (08:32)
[2020-05-19] MEDS: VITAMIN C PO SCH (08:33)
[2020-05-19] MEDS ORDERED: PHARMACY COMMENT IV NR (09:00)
[2020-05-19] MEDS: PULMICORT NEB TX 0.5 MG NEB SCH ×2 (09:18→21:49)
[2020-05-19] MEDS: DUONEB 0.5 MG/3 MG (3 mL) NEB SCH ×2 (09:18→13:58)
[2020-05-19] MEDS ORDERED: NS 500 ML IV 500 ML IV ONE (09:19)
[2020-05-19] MEDS ORDERED: NS 1000 ML 1,000 ML with SODIUM BICARBONATE 8.4% INJ ADULT 50 ML IV ONE ×2 (09:21)
[2020-05-19] MEDS ORDERED: SODIUM BICARBONATE IV ONE ×2 (09:21)
[2020-05-19] MEDS ORDERED: NS IV ONE ×2 (09:21)
[2020-05-19] MEDS ORDERED: LASIX IVP ONE (09:21)
[2020-05-19] MEDS ORDERED: DOPAMINE IV PREMIX 400 MG/250 ML 400 MG/250 ML BAG IV PRN (09:22)
[2020-05-19] MEDS: LEVAQUIN PREMIX IV 500 MG 500 MG/100 ML BAG IV SCH (10:05)
[2020-05-19] MEDS ORDERED: LOPRESSOR INJ 5 MG AMP IVP ONE ×2 (11:13→14:24)
[2020-05-19] MEDS: REMDESIVIR 100 MG in NS 250 ML IV 250 ML IV SCH (11:30)
[2020-05-19] MEDS: VSL#3 PO SCH (11:38)
[2020-05-19] MEDS: ALBUMIN HUMAN 25%- 100 ML 100 ML IV SCH ×2 (11:41→21:29)
[2020-05-19 13:09] LABS: CREATININE 4.19 mg/dL (0.70-1.30)
[2020-05-19 13:10] LABS: VANCOMYCIN,TROUGH 9.9 ug/mL (15-20)
[2020-05-19] MEDS: VANCOMYCIN IV *PREMIX 1 G/200 ML BAG 1 G/200 ML PIGGYBACK IV NR ×2 (13:22→13:26)
[2020-05-19] MEDS: VANCOMYCIN IV *PREMIX 1 G/200 ML BAG 1 G/200 ML PIGGYBACK IV SCH ×2 (13:26)
[2020-05-19] MEDS: MORPHINE SULFATE INJ 2 MG INJ IVP PRN ×2 (14:46→21:40)
[2020-05-19 14:59] LABS: ABG BASE EXCESS -5.5 mmol/L (-2.0-2.0); ABG HCO3 19.2 mmol/L (22-26)
[2020-05-19 16:47] LABS: CKMB % 3.7 % (<4); CREATINE KINASE MB 3.8 ng/mL (0-4.0); TROPONIN I 0.05 ng/mL (0-1.5)
[2020-05-19] MEDS ORDERED: LANOXIN INJ IVP ONE (17:04)
[2020-05-19] MEDS: XOPENEX 1.25 MG/3 ML NEBULE NEB SCH (17:23)
[2020-05-19 20:58] LABS: CKMB % 3.8 % (<4); TROPONIN I 0.12 ng/mL (0-1.5)
[2020-05-19] MEDS: CRESTOR TAB 10 MG PO SCH (21:31)
[2020-05-19] MEDS: ELAVIL PO SCH (21:32)
[2020-05-20] MEDS: XOPENEX 1.25 MG/3 ML NEBULE NEB SCH ×4 (00:59→17:12)
[2020-05-20] MEDS: NS 1/2 1000 ML IV 1,000 ML with SODIUM BICARBONATE 8.4% INJ ADULT 50 ML IV SCH ×4 (02:56→10:16)
[2020-05-20 03:13] LABS: BASOPHILS % (AUTO) 0.1 % (0.2-1.0); HEMATOCRIT 27.1 % (42.0-54.0); HEMOGLOBIN 8.9 g/dL (13.5-18.0); LYMPHOCYTES # (AUTO) 0.2 X10^3/uL (1.3-2.9); LYMPHOCYTES % (AUTO) 1.5 % (21.0-51.0); MEAN CORPUSCULAR HEMOGLOBIN 23.9 pg (27.0-34.0); MEAN CORPUSCULAR VOLUME 72.6 fL (80.0-100.0); MEAN PLATELET VOLUME 10.1 fL (7.4-11.0); MONOCYTES # (AUTO) 0.6 x10^3/uL (0.3-0.8); MONOCYTES % (AUTO) 4.6 % (0.0-13.0); NEUTROPHILS # (AUTO) 12.1 x10^3/uL (2.2-4.8); NEUTROPHILS % (AUTO) 93.8 % (42.0-75.0); PLATELET COUNT 111 X10^3/uL (150.0-450.0); RED BLOOD COUNT 3.74 X10^6/uL (4.7-6.0); RED CELL DISTRIBUTION WIDTH 17.3 % (11.6-16.5); WHITE BLOOD COUNT 12.9 X10^3/uL (3.6-10.0)
[2020-05-20 03:21] LABS: ALBUMIN 2.7 g/dL (3.4-5.0); CALCIUM 7.8 mg/dL (8.5-10.1); CARBON DIOXIDE 19.9 mmol/L (21-32); COR CA(FOR HYPOALB) 8.8 mg/dL (8.5-10.1); CREATININE 4.63 mg/dL (0.70-1.30); TOTAL PROTEIN 5.8 g/dL (6.4-8.2)
[2020-05-20 03:28] LABS: CREATINE KINASE MB 3.4 ng/mL (0-4.0); TROPONIN I 0.15 ng/mL (0-1.5)
[2020-05-20 03:38] LABS: BAND NEUTROPHILS % 3 % (0-10); HYPOCHROMASIA 1+; OVALOCYTES PRESENT; PLATELET MORPHOLOGY COMMENT NORMAL (NORMAL)
--- NOTE | 2020-05-20 06:17 | RAD ---
HISTORYPneumonia, covidSTUDYAP [id number]/2020FINDINGSSimilar cardiac enlargement. Persistent bilateral airspace disease without evidence for new consolidation, complicating pleural fluid or extrapulmonary air.IMPRESSIONNo change. Stable bilateral pulmonary infiltrates consistent with pneumonia.Electronically signed by: JAZMIN ELDRIDGE (May 20, 2020 06:16:13)
[2020-05-20 06:38] LABS: ABG BASE EXCESS -5.9 mmol/L (-2.0-2.0); ABG HCO3 19.5 mmol/L (22-26)
[2020-05-20 06:41] LABS: ABG ALLEN TEST POS
[2020-05-20] MEDS: HumuLIN R SC PRN ×3 (06:49→15:56)
[2020-05-20] MEDS: SOLU-Medrol 40 MG VIAL IVP SCH ×3 (06:49→21:10)
[2020-05-20] MEDS: ALBUMIN HUMAN 25%- 100 ML 100 ML IV SCH ×2 (08:19→21:24)
[2020-05-20] MEDS ORDERED: REMDESIVIR IV ONE (08:47)
[2020-05-20] MEDS ORDERED: NS 250 ML IV 0 ML IV ONE (08:49)
[2020-05-20] MEDS: PEPCID 20 MG IV PREMIX* 20 MG/50 ML BAG IV SCH (08:53)
[2020-05-20] MEDS: PROTONIX INJ 40 MG VIAL IVP SCH ×2 (08:53→21:09)
[2020-05-20] MEDS: ROBITUSSIN DM PO SCH ×4 (09:05→21:09)
[2020-05-20] MEDS: COLACE CAP 100 MG PO SCH (09:06)
[2020-05-20] MEDS: VSL#3 PO SCH (09:06)
[2020-05-20] MEDS: VITAMIN D3 25 mcg (1,000 UNITS) PO SCH (09:06)
[2020-05-20] MEDS: VITAMIN C PO SCH (09:07)
[2020-05-20] MEDS: NEPHRO-VITE RX PO SCH (09:07)
[2020-05-20] MEDS: COREG TAB 12.5 MG PO SCH ×2 (09:07→21:08)
[2020-05-20] MEDS: FOLIC ACID TAB 1 MG PO SCH (09:07)
[2020-05-20] MEDS: ASPIRIN EC 81 MG PO SCH (09:07)
[2020-05-20] MEDS: SYNTHROID 25 mcg TAB PO SCH (09:07)
[2020-05-20] MEDS: LOVENOX INJ 30 MG SYR SC SCH (09:08)
[2020-05-20] MEDS: LEVAQUIN PREMIX IV 500 MG 500 MG/100 ML BAG IV SCH (09:31)
[2020-05-20] MEDS: PULMICORT NEB TX 0.5 MG NEB SCH ×2 (09:59→21:37)
[2020-05-20] MEDS: MORPHINE SULFATE INJ 2 MG INJ IVP PRN ×2 (10:32→14:19)
[2020-05-20] MEDS: VANCOMYCIN IV *PREMIX 1 G/200 ML BAG 1 G/200 ML PIGGYBACK IV SCH (13:07)
[2020-05-20] MEDS: CRESTOR TAB 10 MG PO SCH (21:08)
[2020-05-20] MEDS: ELAVIL PO SCH (21:09)
[2020-05-20] MEDS: HEPARIN SODIUM INJ 5000 UNITS SC SCH (21:09)
[2020-05-21] MEDS: XOPENEX 1.25 MG/3 ML NEBULE NEB SCH ×3 (01:15→14:52)
[2020-05-21] MEDS: NS 1/2 1000 ML IV 1,000 ML with SODIUM BICARBONATE 8.4% INJ ADULT 50 ML IV SCH ×6 (02:41→16:11)
[2020-05-21 05:32] LABS: BASOPHILS % (AUTO) 0.1 % (0.2-1.0); HEMATOCRIT 26.2 % (42.0-54.0); HEMOGLOBIN 8.5 g/dL (13.5-18.0); LYMPHOCYTES # (AUTO) 0.2 X10^3/uL (1.3-2.9); LYMPHOCYTES % (AUTO) 0.9 % (21.0-51.0); MEAN CORPUSCULAR HEMOGLOBIN 23.9 pg (27.0-34.0); MEAN CORPUSCULAR HGB CONC 32.6 g/dL (33.0-35.0); MEAN CORPUSCULAR VOLUME 73.4 fL (80.0-100.0); MONOCYTES # (AUTO) 0.9 x10^3/uL (0.3-0.8); MONOCYTES % (AUTO) 5.2 % (0.0-13.0); NEUTROPHILS # (AUTO) 16.5 x10^3/uL (2.2-4.8); NEUTROPHILS % (AUTO) 93.8 % (42.0-75.0); PLATELET COUNT 114 X10^3/uL (150.0-450.0); RED BLOOD COUNT 3.57 X10^6/uL (4.7-6.0); WHITE BLOOD COUNT 17.6 X10^3/uL (3.6-10.0)
[2020-05-21 05:49] LABS: CALCIUM 7.9 mg/dL (8.5-10.1); CARBON DIOXIDE 19.6 mmol/L (21-32); COR CA(FOR HYPOALB) 8.7 mg/dL (8.5-10.1); CREATININE 5.16 mg/dL (0.70-1.30); TOTAL PROTEIN 5.9 g/dL (6.4-8.2)
[2020-05-21] MEDS: SOLU-Medrol 40 MG VIAL IVP SCH ×2 (06:08→14:42)
[2020-05-21 06:17] LABS: PLATELET MORPHOLOGY COMMENT NORMAL (NORMAL)
[2020-05-21 06:18] LABS: HYPOCHROMASIA 1+; OVALOCYTES PRESENT
[2020-05-21] MEDS: HumuLIN R SC PRN (06:56)
[2020-05-21] MEDS ORDERED: LASIX IVP ONE (09:17)
[2020-05-21] MEDS: PULMICORT NEB TX 0.5 MG NEB SCH (09:33)
[2020-05-21] MEDS: ALBUMIN HUMAN 25%- 100 ML 100 ML IV SCH (09:38)
[2020-05-21] MEDS: COREG TAB 12.5 MG PO SCH (09:39)
[2020-05-21] MEDS: HEPARIN SODIUM INJ 5000 UNITS SC SCH (09:39)
[2020-05-21] MEDS: COLACE CAP 100 MG PO SCH (09:39)
[2020-05-21] MEDS: ASPIRIN EC 81 MG PO SCH (09:39)
[2020-05-21] MEDS: FOLIC ACID TAB 1 MG PO SCH (09:39)
[2020-05-21] MEDS: PEPCID 20 MG IV PREMIX* 20 MG/50 ML BAG IV SCH (09:40)
[2020-05-21] MEDS: SYNTHROID 25 mcg TAB PO SCH (09:40)
[2020-05-21] MEDS: PROTONIX INJ 40 MG VIAL IVP SCH (09:40)
[2020-05-21] MEDS: ROBITUSSIN DM PO SCH ×2 (09:40→12:12)
[2020-05-21] MEDS: VITAMIN C PO SCH (09:40)
[2020-05-21] MEDS: VITAMIN D3 25 mcg (1,000 UNITS) PO SCH (09:41)
[2020-05-21] MEDS: VSL#3 PO SCH (09:41)
[2020-05-21] MEDS: ATIVAN TAB 0.5 MG PO PRN (10:00)
[2020-05-21 10:53] LABS: ABG ALLEN TEST POS; ABG BASE EXCESS -4.1 mmol/L (-2.0-2.0); ABG HCO3 20.9 mmol/L (22-26)
--- NOTE | 2020-05-21 12:28 | RAD ---
HISTORYCOVID-19STUDYCHEST, 1 [id number]/1920FINDINGSMedian sternotomy changes with AVR. Cardiac silhouette is enlarged and pulmonary vasculature congested with worsening bilateral airspace disease, greatest in the right lung base. No sizable pleural effusion or pneumothorax.IMPRESSIONWorsening bilateral airspace diseaseElectronically signed by: Dar Bustamante (May 21, 2020 12:27:04)
[2020-05-21] MEDS: VANCOMYCIN IV *PREMIX 1 G/200 ML BAG 1 G/200 ML PIGGYBACK IV SCH (12:54)
[2020-05-21 15:46] LABS: BILIRUBIN,URINE NEGATIVE (NEGATIVE); BLOOD/HEMOGLOBIN,URINE 1+ (NEGATIVE); GLUCOSE, URINE NEGATIVE (NEGATIVE); KETONES,URINE NEGATIVE (NEGATIVE); LEUKOCYTE ESTERASE ,URINE NEGATIVE (NEGATIVE); NITRITES,URINE NEGATIVE (NEGATIVE); PROTEIN,URINE 3+ (NEGATIVE); UROBILINOGEN,URINE NORMAL (NORMAL)
[2020-05-21 15:56] LABS: APPEARANCE,URINE CLEAR (CLEAR); COLOR,URINE YELLOW (YELLOW)
[2020-05-21 15:58] LABS: RBC,URINE 0-2 /HPF (0-3)
[2020-05-21 15:59] LABS: BACTERIA,URINE NEGATIVE /HPF (NEGATIVE); SQUAMOUS EPITHELIAL CELL,UR RARE /HPF (NEGATIVE)
[2020-05-21] MEDS: MORPHINE SULFATE INJ 2 MG INJ IVP PRN (18:00)
[2020-05-21 18:05] VITALS: BP 187/81
[2020-05-22] MEDS ORDERED: PHARMACY COMMENT IV ONE (10:00)
[2020-05-22] MEDS ORDERED: LEVAQUIN PREMIX IV 250 MG 250 MG/50 ML BAG IV SCH (10:00)
== END 2020-05-21 18:09 | disposition short-term general hospital (02) | DRG 177 ==
LOC: ICU 14:57
PROVIDERS: ADMIT Internal Medicine; ATTEND Internal Medicine
DX: Z79.899 Other long term (current) drug therapy; I87.2 Venous insufficiency (chronic) (peripheral); R79.89 Other specified abnormal findings of blood chemistry; U07.1 COVID-19; R79.82 Elevated C-reactive protein (CRP); R26.89 Other abnormalities of gait and mobility; J12.89 Other viral pneumonia; R06.02 Shortness of breath; I10 Essential (primary) hypertension; E11.65 Type 2 diabetes mellitus with hyperglycemia; R53.1 Weakness; I34.0 Nonrheumatic mitral (valve) insufficiency; I25.10 Atherosclerotic heart disease of native coronary artery without angina pectoris